=== PATIENT | male | born 1985 | race Caucasian/White ===

== ENCOUNTER 2017-05-27 09:55 | Emergency (ER) | payer BC ==
[~2017-05-27] VITALS: Ht 182.9 cm; Wt 154.0 kg
[~2017-05-27 09:55] MED LIST: CPR500 PO; METR500T PO; MULT-506 PO
[2017-05-27 10:07] VITALS: TEMP 37; Ht 182.9 cm; Wt 154.0 kg
[2017-05-27] MEDS ORDERED: ONDANSETRON INJ 2 MG/ML 2 ML VIAL IV STA (10:47)
[2017-05-27] MEDS ORDERED: SODIUM CHLORIDE 0.9% 1000ML 2,000 ML IV STA (10:47)
[2017-05-27] MEDS ORDERED: ALBUTEROL 0.083% NEBU SOLN 3 ML VIAL INH STA (10:48)
[2017-05-27] MEDS ORDERED: KETOROLAC TROMETHAMINE 30 MG/ML VIAL IV STA (10:48)
--- NOTE | 2017-05-27 11:01 | DIAGNOSTIC IMAGING REPORT ---
CHEST ONE VIEW PORTABLE CLINICAL HISTORY: 32 years-old Male presenting with Chest Pain. TECHNIQUE: Portable upright AP view of the chest was obtained. COMPARISON: None. FINDINGS: Cardiomediastinal silhouette normal. Elevation of the right hemidiaphragm. No focal opacity. No large effusion or pneumothorax. Osseous structures normal. Upper abdomen normal. IMPRESSION: 1. No acute cardiopulmonary disease. Electronically signed by: Matthew Duque M.D. 05/27/2017 10:59 AM Dictated Date/Time: 05/27/2017 10:59 AM
[2017-05-27 11:08] LABS: BASO % 0.3 %; BASO ABS # 0.02 K/uL (0-0.2); EOS % 1.3 %; EOS ABS # 0.09 K/uL (0-0.5); HEMATOCRIT 43.9 % (42-52); IG# 0.03 K/uL (0.00-0.02); LYMPH % 19.7 %; LYMPH ABS # 1.37 K/uL (1.2-3.4); MEAN CORPUSCULAR HEMOGLOBIN 28.4 pg (25-34); MEAN CORPUSCULAR HGB CONC 34.2 g/dl (32-36); MEAN PLATELET VOLUME 10.8 fL (7.4-10.4); MONO % 6.5 %; MONO ABS # 0.45 K/uL (0.11-0.59); NEUT % 71.8 %; PLATELET COUNT 223 K/uL (130-400); RED CELL DISTRIBUTION WIDTH CV 13.6 % (11.5-14.5); RED CELL DISTRIBUTION WIDTH SD 40.9 fL (36.4-46.3); WHITE BLOOD COUNT 6.96 K/uL (4.8-10.8)
[2017-05-27 11:24] LABS: ALBUMIN 4.5 gm/dl (3.4-5.0); BLOOD UREA NITROGEN 12 mg/dl (7-18); CALCIUM 9.5 mg/dl (8.5-10.1); CARBON DIOXIDE 26 mmol/L (21-32); LIPASE 103 U/L (73-393); POTASSIUM 3.8 mmol/L (3.5-5.1); SODIUM 138 mmol/L (136-145)
[2017-05-27 11:26] LABS: ALT/SGPT 86 U/L (12-78); CREATININE 1.05 mg/dl (0.60-1.40)
[2017-05-27 11:33] LABS: ALKALINE PHOSPHATASE 58 U/L (45-117); AST/SGOT 32 U/L (15-37); CKMB 5.9 ng/ml (0.5-3.6); GLUCOSE 118 mg/dl (70-99); TOTAL PROTEIN 8.1 gm/dl (6.4-8.2)
[2017-05-27] MEDS ORDERED: OPTIRAY 320 IV PRN (12:15)
--- NOTE | 2017-05-27 12:32 | DIAGNOSTIC IMAGING REPORT ---
(CHEST FOR PE) ANGIO WITH CT DOSE: 855.41 mGy.cm HISTORY: Chest pain dyspnea TECHNIQUE: Multiaxial CT images of the chest were performed following the intravenous administration of contrast to evaluate the pulmonary arteries. Maximal intensity projection images were also obtained. A dose lowering technique was utilized adhering to the principles of ALARA. COMPARISON STUDY: None. FINDINGS: The examination is negative for pulmonary embolus. Thoracic aorta is normal in course and caliber. Slight interstitial prominence throughout both hemithoraces. 4 mm low suspicion nodule left posterior calcified angle. Diffuse fatty infiltration of liver. IMPRESSION: No evidence for pulmonary embolus. Slight interstitial prominence throughout both hemithoraces. Diffuse fatty infiltration of liver. The above report was generated using voice recognition software. It may contain grammatical, syntax or spelling errors. Electronically signed by: Tyree Lozano M.D. 05/27/2017 12:30 PM Dictated Date/Time: 05/27/2017 12:27 PM
[2017-05-27 13:21] VITALS: BP 150/80; PULSE 102; O2SAT 91
--- NOTE | 2017-05-27 17:27 | EMERGENCY ROOM VISIT NOTE ---
History Report prepared by Sai: Alison Moody Under the Supervision of: Dr. Kingston Ornelas D.O. First contact with patient: 10:40 Chief Complaint: SHORTNESS OF BREATH Stated Complaint: SHORTNESS OF BREATH Nursing Triage Summary: pt reports Fri started with cough congestion and then feeling increased sob with exertion. has a feeling of tightness in chest when coughing pt reports radiates to all over body but not at the same time History of Present Illness The patient is a 32 year old male who presents to the Emergency Room with complaints of persistent SOB starting 3 days ago. He has never had this before. He reports chest tightness with deep breaths and some congestion. He also notes he is very anxious and normally has a slightly elevated heart rate due to his anxiety. No shortness of breath with lying flat. No other exacerbating or remitting factors. He admits his heart rate normally runs in the 90s. He denies any cough, rhinorrhea, abdominal pain, nausea, vomiting, diarrhea, urinary symptoms, fever, or rash. Patient denies swelling of calves, recent trips, history of immobilization or recent surgery, prior history of DVT, hemoptysis, history of malignancy, history of smoking, or control/ estrogen use. Patient denies diabetes, hypertension, hyperlipidemia, CAD, history of sudden at a young age, and smoking. He denies any history of asthma or COPD. Source of History: patient Onset: 3 days ago Position: other (constitutional) Quality: other (SOB) Timing: other (persistent) Associated Symptoms: + chest pain, No fevers, No cough, No nausea, No vomiting, No abdominal pain, No diarrhea, No urinary symptoms, No rash Note: Pt reports congestion. Review of Systems See HPI for pertinent positives & negatives. A total of 10 systems reviewed and were otherwise negative. Past Medical & Surgical Medical Problems: (1) Diverticulitis Family History Cancer Hypertension Social History Smoking Status: Never Smoker Housing Status: lives alone Current/Historical Medications No Active Prescriptions or Reported Meds Allergies Coded Allergies: Amoxicillin (Verified Allergy, Unknown, unknown, 05/27/17) Physical Exam Vital Signs Date Time Temp Pulse Resp B/P (MAP) Pulse Ox O2 Delivery O2 Flow Rate FiO2 05/27/17 13:21 102 150/80 91 05/27/17 10:49 115 139/100 95 Room Air 05/27/17 10:48 109 05/27/17 10:07 37.0 120 20 180/114 94 Room Air Physical Exam GENERAL: Sitting up in bed, obese, disheveled, talking in full sentences EYE EXAM: normal conjunctiva. OROPHARYNX: no exudate, no erythema, lips, buccal mucosa, and tongue normal and mucous membranes are moist NECK: supple, no nuchal rigidity, no adenopathy, non-tender, no JVD LUNGS: Faint wheezing bilaterally. Normal chest wall mechanics HEART: tachycardic, no murmurs, S1 normal and S2 normal ABDOMEN: abdomen soft, non-tender, normo-active bowel sounds, no masses, no rebound or guarding. BACK: Back is symmetrical on inspection and there is no deformity, no midline tenderness, no CVA tenderness. SKIN: no rashes and no bruising UPPER EXTREMITIES: upper extremities are grossly normal. LOWER EXTREMITIES: No pitting edema. Calves equal bilaterally. NEURO EXAM: Normal sensorium, cranial nerves II-XII grossly intact, normal speech, no gross weakness of arms, no gross weakness of legs. Medical Decision & Procedures ER Provider Diagnostic Interpretation: Radiology results as stated below per my review and the radiologist's interpretation: CHEST ONE VIEW PORTABLE CLINICAL HISTORY: 32 years-old Male presenting with Chest Pain. TECHNIQUE: Portable upright AP view of the chest was obtained. COMPARISON: None. FINDINGS: Cardiomediastinal silhouette normal. Elevation of the right hemidiaphragm. No focal opacity. No large effusion or pneumothorax. Osseous structures normal. Upper abdomen normal. IMPRESSION: 1. No acute cardiopulmonary disease. Electronically signed by: Matthew Duque M.D. 05/27/2017 10:59 AM Dictated Date/Time: 05/27/2017 10:59 AM (CHEST FOR PE) ANGIO WITH CT DOSE: 855.41 mGy.cm HISTORY: Chest pain dyspnea TECHNIQUE: Multiaxial CT images of the chest were performed following the intravenous administration of contrast to evaluate the pulmonary arteries. Maximal intensity projection images were also obtained. A dose lowering technique was utilized adhering to the principles of ALARA. COMPARISON STUDY: None. FINDINGS: The examination is negative for pulmonary embolus. Thoracic aorta is normal in course and caliber. Slight interstitial prominence throughout both hemithoraces. 4 mm low suspicion nodule left posterior calcified angle. Diffuse fatty infiltration of liver. IMPRESSION: No evidence for pulmonary embolus. Slight interstitial prominence throughout both hemithoraces. Diffuse fatty infiltration of liver. The above report was generated using voice recognition software. It may contain grammatical, syntax or spelling errors. Electronically signed by: Tyree Lozano M.D. 05/27/2017 12:30 PM Dictated Date/Time: 05/27/2017 12:27 PM Laboratory Results 05/27/17 10:50 Red Blood Count 5.29, Mean Corpuscular Volume 83.0, Mean Corpuscular Hemoglobin 28.4, Mean Corpuscular Hemoglobin Concent 34.2, Mean Platelet Volume 10.8, Neutrophils (%) (Auto) 71.8, Lymphocytes (%) (Auto) 19.7, Monocytes (%) (Auto) 6.5, Eosinophils (%) (Auto) 1.3, Basophils (%) (Auto) 0.3, Neutrophils # (Auto) 5.00, Lymphocytes # (Auto) 1.37, Monocytes # (Auto) 0.45, Eosinophils # (Auto) 0.09, Basophils # (Auto) 0.02 05/27/17 10:50 Test 05/27/17 10:50 White Blood Count 6.96 K/uL (4.8-10.8) Red Blood Count 5.29 M/uL (4.7-6.1) Hemoglobin 15.0 g/dL (14.0-18.0) Hematocrit 43.9 % (42-52) Mean Corpuscular Volume 83.0 fL (80-100) Mean Corpuscular Hemoglobin 28.4 pg (25-34) Mean Corpuscular Hemoglobin Concent 34.2 g/dl (32-36) Platelet Count 223 K/uL (130-400) Mean Platelet Volume 10.8 fL (7.4-10.4) Neutrophils (%) (Auto) 71.8 % Lymphocytes (%) (Auto) 19.7 % Monocytes (%) (Auto) 6.5 % Eosinophils (%) (Auto) 1.3 % Basophils (%) (Auto) 0.3 % Neutrophils # (Auto) 5.00 K/uL (1.4-6.5) Lymphocytes # (Auto) 1.37 K/uL (1.2-3.4) Monocytes # (Auto) 0.45 K/uL (0.11-0.59) Eosinophils # (Auto) 0.09 K/uL (0-0.5) Basophils # (Auto) 0.02 K/uL (0-0.2) RDW Standard Deviation 40.9 fL (36.4-46.3) RDW Coefficient of Variation 13.6 % (11.5-14.5) Immature Granulocyte % (Auto) 0.4 % Immature Granulocyte # (Auto) 0.03 K/uL (0.00-0.02) D-Dimer < 190 ug/L FEU (0-500) Anion Gap 9.0 mmol/L (3-11) Est Creatinine Clear Calc Drug Dose 153.1 ml/min Estimated GFR () 107.6 Estimated GFR (Non- 92.8 BUN/Creatinine Ratio 11.0 (10-20) Calcium Level 9.5 mg/dl (8.5-10.1) Total Bilirubin 0.4 mg/dl (0.2-1) Direct Bilirubin < 0.1 mg/dl (0-0.2) Aspartate Amino Transf (AST/SGOT) 32 U/L (15-37) Alanine Aminotransferase (ALT/SGPT) 86 U/L (12-78) Alkaline Phosphatase 58 U/L (45-117) Total Creatine Kinase 272 U/L (39-308) Creatine Kinase MB 5.9 ng/ml (0.5-3.6) Creatine Kinase MB Ratio 2.2 (0-3.0) Troponin I < 0.015 ng/ml (0-0.045) Total Protein 8.1 gm/dl (6.4-8.2) Albumin 4.5 gm/dl (3.4-5.0) Lipase 103 U/L (73-393) Thyroid Stimulating Hormone (TSH) 2.120 uIu/ml (0.300-4.500) Laboratory results per my review. Medications Administered Medications (Trade) Dose Ordered Sig/Lisa Route Start Time Stop Time Status Last Admin Dose Admin Ondansetron HCl (Zofran Inj) 4 mg NOW STAT IV 05/27/17 10:47 05/27/17 10:49 DC 05/27/17 10:55 4 MG Ketorolac Tromethamine (Toradol Inj) 30 mg NOW STAT IV 05/27/17 10:48 05/27/17 10:50 DC 05/27/17 10:56 30 MG Albuterol Sulfate (Ventolin 0.083% 2.5MG/3ML Neb) 2.5 mg NOW STAT INH 05/27/17 10:48 05/27/17 10:50 DC 05/27/17 10:55 2.5 MG ECG Per My Interpretation Indication: SOB/dyspnea Rate (beats per minute): 105 Rhythm: sinus tachycardia Findings: other (normal axis, no PVC) ED Course ED COURSE: Vital signs were reviewed and showed hypertension, tachycardia. The patients medical record was reviewed The above diagnostic studies were performed and reviewed. ED treatments and interventions as stated above. 1043: The patient was evaluated in room B2. A complete history and physical examination was performed. 1047: Zofran Inj 4 mg IV, NSS 2000 ml @ 999 mls/hr IV. 1048: Albuterol Sulfate 2.5 mg INH, Toradol Inj 30 mg IV. 1156: I reevaluated the patient. He notes that he feels very anxious currently. 1300: Upon reevaluation, the patient is resting comfortably. I discussed my findings with the patient and he understands and agrees with the treatment plan. Based on the patients age, coexisting illnesses, exam and lab findings the decision to treat as an outpatient was made. The patient remained stable while under my care. The patient appeared well at the time of discharge. Medical Decision Differential diagnoses includes but is not limited to pneumonia, bronchitis, COPD/Asthma exacerbation, pneumothorax, pulmonary embolism, congestive heart failure, acute coronary syndrome. Patient is a 32-year-old male who presents the ER for shortness of breath and slight chest tightness which has been present for the past 3 days. He admits to some chest congestion. CBC along with BMP, LFTs, bilirubin, troponin, lipase and TSH were unremarkable. D-dimer was negative but with his mild persistent tachycardia I did perform CT PE. This is unremarkable for signs of infection or PEs. Patient notes that he is extremely anxious and that is why his heart rate is elevated. Offered benzos but he declined. Patient was given albuterol and did have improvement of his symptoms. EKG was unremarkable and without ischemia. He was updated at bedside and discharged as I favor this is likely viral based on his congestion but cannot be certain. Discussed with Pt concerning signs and symptoms to watch out for. Pt was instructed to follow up with their PCP and discussed with the patient their option to return to the ED at anytime for persistent or worsening symptoms. The appropriate anticipatory guidance and out-patient management, including indications for return to the emergency department, were explained at length to the patient and understood. Medication Reconcilliation Current Medication List: was personally reviewed by me Blood Pressure Screening Patient's blood pressure: Elevated blood pressure Blood pressure disposition: Referred to PCP Impression Primary Impression: Dyspnea Scribe Attestation The scribe's documentation has been prepared under my direction and personally reviewed by me in its entirety. I confirm that the note above accurately reflects all work, treatment, procedures, and medical decision making performed by me. Departure Information Dispostion Home / Self-Care Prescriptions No Active Prescriptions or Reported Meds Referrals Tyree Ritchie M.D. (PCP) Forms HOME CARE DOCUMENTATION FORM, IMPORTANT VISIT INFORMATION Patient Instructions ED Dyspnea Shortness of Breath, My [facility] Additional Instructions Please follow up with your primary care doctor with in the next 24 hours. Any worsening of your symptoms, please return to the ED immediately. This includes any fevers greater than 100.4, worsening pain, chest pain, shortness breath, persistent nausea, vomiting, unable to eat or drink, or any other concerning signs or symptoms from your standpoint. Problem Qualifiers Primary Impression: Dyspnea Dyspnea type: unspecified Qualified Codes: R06.00 - Dyspnea, unspecified
== END 2017-05-27 13:22 | disposition home or self-care (01) ==
LOC: C.EDB 09:56
DX: R06.00 Dyspnea, unspecified (principal); R07.89 Other chest pain; R00.0 Tachycardia, unspecified; R03.0 Elevated blood-pressure reading, without diagnosis of hypertension; Z88.0 Allergy status to penicillin; Z82.49 Family history of ischemic heart disease and other diseases of the circulatory system